=== PATIENT | male | born 1940 | race Caucasian/White ===

== ENCOUNTER → 2021-02-06 10:45 | Outpatient (CLI) | payer OTHER, SELFPAY ==
[2021-02-06 13:27] LABS: COVID19 -Nasal RAPID Negative (Negative)
== END ==
PROVIDERS: Visit Provider Physician Assistant
DX: Z20.822 Contact with and (suspected) exposure to COVID-19 (principal)
CPT/HCPCS: 87635

== ENCOUNTER 2021-02-08 06:32 | Day surgery (SDC) | payer OTHER, SELFPAY ==
[2021-02-05 12:19] VITALS: BMI 30.7
[2021-02-08] VITALS (9 sets, daily range): BP systolic 144–150; BP diastolic 60–69; PULSE 53–60; RESP 10–20; TEMP 36.4–36.8; O2SAT 94–99; BMI 29.8
[2021-02-08] MEDS: LACTATED RINGERS 1,000 ML 42 ML IV (07:21)
--- NOTE | 2021-02-08 07:39 | P.OP_ITS ---
Operative Date/Time/Diagnoses Date of procedure: 02/08/21 Time of procedure: 09:19 Pre-op diagnosis: Right knee medial compartment osteoarthritis Post-op diagnosis: same Procedure & Clinicians Procedure: Right knee medial compartment arthroplasty Same procedure as scheduled: Yes Indications: The patient presents today for right knee medial compartment arthroplasty The nature of the procedure including the risks and benefits, alternatives, postoperative course and expected outcome were discussed and all questions answered. Consent was obtained. Operative site confirmed and marked. Surgeon: Jerome Slater Heel Seat Filler: Trav Tate Anesthesia Type: General and Local Operative Notes Closure Type: primary Specimen(s): none sent Prosthetic devices, grafts, tissues, transplants, or devices: [employer] JUK 7 femur and 6 tibia with 9 mm polyethylene tray. Applied: implant(s) Estimated Blood Loss (mL): 50 Blood products transfused: none Tourniquet time (min): 60 Procedure in detail: The patient was taken to the operative suite and placed under general anesthesia. The patient received prophylactic antibiotics 1 g of IV tranexamic acid prior to surgery. The lateral aspect of the leg was prepped and the knee injected with 20 mL of 1% lidocaine with epinephrine. The leg was prepped and draped in usual sterile fashion. The leg was exsanguinated with an Esmarch dressing and the tourniquet raised to 250 torr. A 10 cm medial parapatellar incision and arthrotomy was then made. The anterior aspect of the fat pad and medial meniscus was resected. A small amount of anterior tibial ham s was resected with a oscillating saw. The knee was then extended and the alignment guide placed. The distal femoral and proximal tibial cutting guides were then pinned into place. The distal femoral cut was made in extension. The proximal tibial cut was made in flexion. All remaining meniscus was excised. Gaps were checked with blocks. Soft tissues were then injected with a combination of 40 mL of quarter percent Marcaine with epinephrine, 20 mL of Exparel. The femur was sized and the appropriate cutting guide placed. The peg holes were drilled and chamfer cuts made. Next the tibia was sized and drilled. Trial components were then placed. The knee had good adventist of soft tissue tension without over correction. Range of motion was full. The trial components were removed. The knee was cleansed with Pulsavac irrigation and dried. The components were then cemented with high viscosity vacuum mixed bone cement. The knee was held in extension until the cement had adequately cured. The knee was then irrigated and inspected for any further debris. The extensor mechanism was closed at 90? of flexion with a few interrupted #1 Vicryl sutures and a running O V-LOC suture. The knee was then filled with 50 mL of solution containing 1 g of tranexamic acid and 10 mL of 0.5% Marcaine. The subcutaneous tissue was closed with 2-0 Vicryl. The skin was closed with a running 3 0 V-LOC suture and surgical adhesive. An Aquacel dressing was applied. The leg was then wrapped with an Darci which will be kept on for the first 24 hours. The patient tolerated the procedure well and was returned to recovery room in good condition. Complications: none Post-operative Condition: stable Disposition: PACU Plan for aftercare: Plan discharge to home. Start physical therapy within 1 week. May progress activity as tolerated. Follow-up in 2 weeks.
--- NOTE | 2021-02-08 07:39 | PM.PREOP ---
Pre-operative Note COVID-19 COVID-19 status: Negative Interval Note History & Physical reviewed/Exam performed by Physician: Yes Changes to H&P: No
[2021-02-08] MEDS: CEFAZOLIN 1 GM VIAL 2 GM IV (07:55)
[2021-02-08] MEDS: LIDOCAINE 1% W/EPI 20 ML INJ (08:10)
[2021-02-08] MEDS: BUPIVACAINE 0.5% W/ EPI (PF) 20 ML, BUPIVACAINE LIPOSOME 266 MG, SODIUM CHLORIDE 0.9% 2... INJ (08:25)
[2021-02-08] MEDS: BUPIVACAINE 0.5% W/ EPI (PF) 10 ML, TRANEXAMIC ACID 1,000 MG, SODIUM CHLORIDE 0.9% 20 ML INJ (08:26)
[2021-02-08] MEDS: TRANEXAMIC ACID 1,000 MG in SODIUM CHLORIDE 0.9% 100 ML 200 ML IV (08:28)
--- NOTE | 2021-02-08 08:33 | SUR.OPER ---
Supine on padded OR bed. Pillow under head, arms secured on padded armboards <90 degree abduction. Safety belt across torso. Non-operative leg secured with tape over blanket over lower leg. Operative leg secured in DeMayo/Srinivas/Nathe positioner. Foam padded brace at thigh of operative leg.
--- NOTE | 2021-02-08 09:56 | SUR.OPER ---
Postoperative indentions (3 dime sized) noted laterally below the right knee following procedure.
--- NOTE | 2021-02-08 10:29 | SUR.PHASEI ---
Spoke with anesthesia Dr. Macario regarding Pt's poct glucose of 206, 4u Reg insulin one time ordered with a recheck due at 1130
--- NOTE | 2021-02-08 10:38 | SUR.PHASEII ---
knee dressing franky wrap removed to inspect skin on lateral right knee. NO pressure sores noted, skin appears intact , no signs of redness or indentation noted.
[2021-02-08] MEDS: INSULIN REGULAR 100 UNIT/ML 3 ML VIAL SUBCUT (10:44)
[2021-02-08] MEDS: OXYCODONE/ACETAMINOPHEN 5/325 TABLET 1 TAB PO (11:16)
--- NOTE | 2021-02-08 12:48 | SUR.PHASEII ---
Late entry: Repeat blood sugar at 1115- 187, Dr. Worthington made aware, no new orders, pt want to go, assisted to dress, left when ready and left in stable condition.
== END 2021-02-08 11:40 | disposition home or self-care (01) ==
PROVIDERS: Referring Provider Orthopaedic Surgery; Visit Provider Orthopaedic Surgery
PROC: (CPT 27446; principal; 2021-02-08 07:45)
DX: M17.11 Unilateral primary osteoarthritis, right knee (principal); I48.91 Unspecified atrial fibrillation; E11.9 Type 2 diabetes mellitus without complications; I25.10 Atherosclerotic heart disease of native coronary artery without angina pectoris; Z79.01 Long term (current) use of anticoagulants; Z95.1 Presence of aortocoronary bypass graft; Z87.891 Personal history of nicotine dependence; Z79.84 Long term (current) use of oral hypoglycemic drugs
CPT/HCPCS: 27447; 82962; C1776; C9290; J0690; J2405; J2704; J3010